=== PATIENT | male | born 1955 | race Caucasian/White ===

== ENCOUNTER 2016-04-04 09:17 | Day surgery (SDC) | payer OTHER ==
[~2016-04-04] VITALS: Ht 177.8 cm; Wt 113.6 kg
[~2016-04-04 09:17] MED LIST: ALEVE220 MG PO; DULCOLAX5 MG PO; LO-DOSE ASPIRIN81 M1 PO; PRILOSEC OTC20 MG PO
[2016-04-04 10:04] VITALS: BP 136/92
[2016-04-04 13:37] VITALS: BP 162/73
[2016-04-04 14:25] VITALS: BP 140/73
== END 2016-04-04 14:40 | disposition home or self-care (01) ==
LOC: SDC 09:17
PROC: 0MB60ZZ Excision of Left Wrist Bursa and Ligament, Open Approach (ICD-10-PCS; principal; 2016-04-04)
DX: M67.432 Ganglion, left wrist (principal); M25.532 Pain in left wrist; Z82.61 Family history of arthritis; Z82.49 Family history of ischemic heart disease and other diseases of the circulatory system; Z83.3 Family history of diabetes mellitus; Z80.9 Family history of malignant neoplasm, unspecified
CPT/HCPCS: 88304; J0690; J1170; J2250; S0020